=== PATIENT | female | born 1965 | race Caucasian/White ===

== ENCOUNTER 2018-09-05 12:53 | Inpatient (IN) | payer OTHER, SELFPAY ==
[2018-08-16 11:10] VITALS: BP 106/72; PULSE 72; RESP 16; TEMP 36.7; O2SAT 97; BMI 48.6
--- NOTE | 2018-08-16 11:30 | SDCEKG_ITS ---
Test Reason : Blood Pressure : / mmHG Vent. Rate : 070 BPM Atrial Rate : 070 BPM P-R Int : 176 ms QRS Dur : 084 ms QT Int : 398 ms P-R-T Axes : 037 000 022 degrees QTc Int : 429 ms Normal sinus rhythm Low voltage QRS Borderline ECG Confirmed by KAYLEIGH BARBER, SNADRA ([id number]), senior editor EDWIN SOLER ([id number]) on 08/19/2018 2:25:44 PM Referred By: Alfonzo Cooper Confirmed By:SANDRA VICTOR MD
[2018-09-05] VITALS (9 sets, daily range): BP systolic 98–118; BP diastolic 58–80; PULSE 63–84; RESP 14–18; TEMP 36.6–36.9; O2SAT 94–100; BMI 48.6; BMI 48.2
[2018-09-05] MEDS: Acetaminophen 500 MG Tablet 1000 MG PO ×2 (13:28→21:48)
[2018-09-05] MEDS: oxyCODONE HCl Cr 10 MG Tablet 20 MG PO (13:29)
--- NOTE | 2018-09-05 14:55 | KNEE_PTH ---
PATIENT: BOSSMAN COLINDRES LOC: MS3 U#:[id number] AGE/SX: 52/F ROOM: MS308 RE09/05/[address]: Dr. Alfonzo Cooper DO : 1965 BED: 1 DIS: 09/06/2018 SPEC #: [id number] RECD: 09/06/18 14:35 STATUS: BRIANNA REQ #: [id number] ZINA: 09/05/18 14:[address]: Alfonzo Cooper DEPT: SURGICAL PATHOLOGY RECD BY: Shankar Ramos ENTERED: 09/06/18 14:35 SP TYPE: TOTAL KNEE OTHR DR: Dr. Anabell Bonilla MD Tissues: Knee, NOS Procedures: Decalcification bone/plaque Surgery Specimen Level IV HEADER OPERATION: Right total knee replacement, left knee intra-articular injection PRE-OP DIAGNOSIS: Unilateral primary osteoarthritis left knee TISSUE SUBMITTED: Left knee bone and soft tissue MICROSCOPIC DIAGNOSIS Bone and soft tissue of left knee, total knee resection: Severe degenerative joint disease. Mild synovial hyperplasia with associated mild chronic inflammation. AM:brian 09/13/18 MICROSCOPIC DESCRIPTION Slides are reviewed. GROSS DESCRIPTION Received is one container designated bone and soft tissue left knee. The specimen consists of multiple fragments of garcia-yellow bone measuring in aggregate 16 x 10 x 2 cm. Also in the specimen container are multiple fragments of yellow-white soft tissue measuring in aggregate 7 x 7 x 2 cm. A number of bony fragments contain articular surfaces consistent with tibial plateau and femoral condyle and displaying prominent osteophyte formation, eburnation, and bone erosion. Local Announcer sections are submitted in two cassettes as follows: 1 - soft tissue, 2 - bone after decalcification. / AM:brian 09/06/18 TC:5 [facility]: [id number], [id number]
[2018-09-05] MEDS: Betamethasone/Betamethasone 30 MG/5 ML Vial (15:29)
[2018-09-05] MEDS: Cefazolin 2 GM in 0.9% Normal Saline 100 ML IV (15:45)
--- NOTE | 2018-09-05 17:14 | OP.PN_ITS ---
Immediate Post-Op Note Date of Procedure: 09/05/18 Primary Surgeon/Physician: Alfonzo Cooper DO riding double: Eliseo Mcgowan Pre-Operative Diagnosis: OA bilateral knees Post-Operative Diagnosis: same Surgery/Procedure Performed:: Left TKR, right intra-articular injection Description of Surgical Findings:: see op note Estimated Blood Loss: 50cc Specimen's removed: bone Type of Anesthesia:: Spinal ASA Class: ASA3 Severe Disease - Admit VTE Documentation VTE Present on Admission: No VTE Mechan Device Prophylaxis: SCD's, Thigh High DIANA Hose VTE Pharm Prophylaxis ordered?: Yes
--- NOTE | 2018-09-05 17:21 | PCM.OP.BLANK ---
Operative Report Date of Procedure: 09/05/18 Primary Surgeon/Physician: Alfonzo Cooper senior sales operations manager: Eliseo Mcgowan PA-C senior sales operations manager: Pre-Operative Diagnosis: OA bilateral knees Post-Operative Diagnosis: same Surgery/Procedure Performed: Left TKR, Right intra-articular injection Estimated Blood Loss: 50 cc Specimen's Removed: bone Type of Anesthesia: spinal ASA Class: 3 Implants: [[place] Triathlon size 6 PS femur, size 5 tibia, 9 mm polyethylene and 35 mm patella (all components cemented) ] Indications: Patient has severe end-stage osteoarthritis diagnosed via x-rays in the bilateral knees. They have failed all forms of conservative measures including activity modification, injections, anti-inflammatories, use of assistive device. The patient has pain that affects on a daily basis and prevents him from doing things that they enjoyed. They have elected to undergo the above procedure. The risks of the procedure were discussed at length and their questions were answered. Procedure Description: The patient was greeted in the preoperative area. The [left ] knee was then marked with a surgical marker. Patient was then taken to or Suite 2. They were administered a dose of antibiotics as well as tranexamic acid. Once adequate anesthesia was obtained and airway was secured to placed in supine position on the operating room table. A well-padded tourniquet was placed on the affected extremity. Leg was then prepped and draped in the usual sterile fashion from the knee down. Ioban was used on the skin. Surgical timeout was then performed and confirmed with all present. Six-inch Esmarch was used to examine the limb and tourniquet was then inflated to 250 mmHg. A longitudinal incision was then planned and carried out in the anterior aspect of the knee. The dissection was then carried the length of the incision the extensor mechanism was identified. Standard medial parapatellar arthrotomy was then performed revealing severe eburnation of bone and periarticular osteophytes. There is complete loss of cartilage especially in the medial compartment with varus alignment. Anterior fat pad was removed for visualization purposes and the anterior medial aspect of the tibia was skeletonized for exposure to the knee. The knee was then flexed the patella was inverted. Opening reamer was then used in the femur approximately 1 cm anterior to the attachment of the PCL. The intramedullary valgus wand was then placed in the femur set at 5? of valgus. The distal femoral cutting jig was then applied to the femur with anticipated resection of approximately 8 mm. This was then made with a oscillating saw. The sizing guide was then placed referencing off the posterior condyles and also reference off the epicondylar axis. This was measured and the appropriate size 4-in-1 cutting jig was then applied to the distal femur. Anterior posterior cuts were made followed by the anterior and posterior chamfer cuts. These bony pieces and fragments were removed and placed on the back table. Posterior retractor was then utilized and the tibia was subluxed anteriorly. Intramedullary tibial alignment jig was then applied to the tibia referencing off the medial one third of the tibial tubercle the anterior tibial spine the middle aspect of the tibiotalar joint. Also reference off patient's [place] slope. The tibial cutting jig was then pinned with anticipated resection of 2 mm off of the deficient medial tibial condyle. This cut was made with the oscillating saw. Once this was complete a laminar chief juvenile probation officer was utilized in both medial lateral meniscus were removed and a posterior capsular osteophytes were also removed. Posterior capsule release was performed in the posterior capsule as well as the geniculate arteries are treated with the aqua Jing. The tibia was incised and the appropriate sized tibial tray was then pinned. The femoral box cutting jig was then applied to the femur and the box was prepared removing a portion of the intercondylar notch. The femoral trial was then placed and the knee was trialed. Full flexion-extension were easily achieved. The knee seemed to balance quite nicely. Any remaining osteophytes were removed at this time. Once this was complete the patella was everted and the Cipriano patella reaming device was then utilized the patella was then placed in the appropriate jig and reamer was then used to remove approximately 9 mm of the undersurface of the patella. A soft tissue remaining was in the way was removed and patella trial was then placed listed maintain excellent tracking using the no thumbs technique. The tibial tray at this point was punched to accommodate the fins of the final implant. At this point cement was mixed on the back table. The trial components were removed and the knee was copiously irrigated. Did use a cocktail of injection for postoperative pain control. The final components were then cemented in the standard fashion and excess cement was removed with cement removal tools and patellar clamp is placed in the patella. As the cement had cured in full extension tourniquet was deflated and hemostasis was perfect with Bovie cautery as well as the aqua Manus. Needle is once again trialed with different size polyethylenes to ensure the full range of motion was achieved as well as excellent balancing ligamentously was achieved. At this point the knee was copiously irrigated. Final implant was then inserted locking mechanism was engaged and confirmed to be locked. The arthrotomy was then closed with #1 Vicryl aggravate type fashion interrupted. Subcutaneous tissue was closed with 0 Vicryl and surgical stephen were placed in the skin. A occlusive silver impregnated dressing was then applied followed by well-padded sterile dressing secured with an Kermit wrap. Under sterile conditions the right knee was injected with 4 cc 1% lidocaine and 2 cc of Celestone Soluspan. The patient was taken to the PACU in stable condition. No complications known at this time. Postoperatively we will maintain standard total knee postoperative protocol. The use of the physician medical assistant cardiology was integral during this procedure. They assisted with positioning placement of the tourniquet retracting closure and placement of the dressing. The procedure would have been much more difficult without their expertise and assistance
--- NOTE | 2018-09-05 17:26 | OP.PCM_ITS ---
Operative Report Date of Procedure: 09/05/18 Primary Surgeon/Physician: Alfonzo Cooper cutter apprentice hand: Eliseo Mcgowan PA-C cutter apprentice hand: Pre-Operative Diagnosis: OA bilateral knees Post-Operative Diagnosis: same Surgery/Procedure Performed: Left TKR, Right intra-articular injection Estimated Blood Loss: 50 cc Specimen's Removed: bone Type of Anesthesia: spinal ASA Class: 3 Implants: [[place] Triathlon size 6 PS femur, size 5 tibia, 9 mm polyethylene and 35 mm patella (all components cemented) ] Indications: Patient has severe end-stage osteoarthritis diagnosed via x-rays in the bilateral knees. They have failed all forms of conservative measures including activity modification, injections, anti-inflammatories, use of assistive device. The patient has pain that affects on a daily basis and prevents him from doing things that they enjoyed. They have elected to undergo the above procedure. The risks of the procedure were discussed at length and their questions were answered. Procedure Description: The patient was greeted in the preoperative area. The [left ] knee was then marked with a surgical marker. Patient was then taken to or Suite 2. They were administered a dose of antibiotics as well as tranexamic acid. Once adequate anesthesia was obtained and airway was secured to placed in supine position on the operating room table. A well-padded tourniquet was placed on the affected extremity. Leg was then prepped and draped in the usual sterile fashion from the knee down. Ioban was used on the skin. Surgical timeout was then performed and confirmed with all present. Six-inch Esmarch was used to examine the limb and tourniquet was then inflated to 250 mmHg. A longitudinal incision was then planned and carried out in the anterior aspect of the knee. The dissection was then carried the length of the incision the extensor mechanism was identified. Standard medial parapatellar arthrotomy was then performed revealing severe eburnation of bone and periarticular osteophytes. There is complete loss of cartilage especially in the medial compartment with varus alignment. Anterior fat pad was removed for visualization purposes and the anterior medial aspect of the tibia was skeletonized for exposure to the knee. The knee was then flexed the patella was inverted. Opening reamer was then used in the femur approximately 1 cm anterior to the attachment of the PCL. The intramedullary valgus wand was then placed in the femur set at 5? of valgus. The distal femoral cutting jig was then applied to the femur with anticipated resection of approximately 8 mm. This was then made with a oscillating saw. The sizing guide was then placed referencing off the posterior condyles and also reference off the epicondylar axis. This was measured and the appropriate size 4-in-1 cutting jig was then applied to the distal femur. Anterior posterior cuts were made followed by the anterior and posterior chamfer cuts. These bony pieces and fragments were removed and placed on the back table. Posterior retractor was then utilized and the tibia was subluxed anteriorly. Intramedullary tibial alignment jig was then applied to the tibia referencing off the medial one third of the tibial tubercle the anterior tibial spine the middle aspect of the tibiotalar joint. Also reference off patient's [place] slope. The tibial cutting jig was then pinned with anticipated resection of 2 mm off of the deficient medial tibial condyle. This cut was made with the oscillating saw. Once this was complete a laminar filter filler was utilized in both medial lateral meniscus were removed and a posterior capsular osteophytes were also removed. Posterior capsule release was performed in the posterior capsule as well as the geniculate arteries are treated with the aqua Jing. The tibia was incised and the appropriate sized tibial tray was then pinned. The femoral box cutting jig was then applied to the femur and the box was prepared removing a portion of the intercondylar notch. The femoral trial was then placed and the knee was trialed. Full flexion-extension were easily achieved. The knee seemed to balance quite nicely. Any remaining osteophytes were removed at this time. Once this was complete the patella was everted and the Cipriano patella reaming device was then utilized the patella was then placed in the appropriate jig and reamer was then used to remove approximately 9 mm of the undersurface of the patella. A soft tissue remaining was in the way was removed and patella trial was then placed listed maintain excellent tracking using the no thumbs technique. The tibial tray at this point was punched to accommodate the fins of the final implant. At this point cement was mixed on the back table. The trial components were removed and the knee was copiously irrigated. Did use a cocktail of injection for postoperative pain control. The final components were then cemented in the standard fashion and excess cement was removed with cement removal tools and p atellar clamp is placed in the patella. As the cement had cured in full extension tourniquet was deflated and hemostasis was perfect with Bovie cautery as well as the aqua Manus. Needle is once again trialed with different size polyethylenes to ensure the full range of motion was achieved as well as excellent balancing ligamentously was achieved. At this point the knee was copiously irrigated. Final implant was then inserted locking mechanism was engaged and confirmed to be locked. The arthrotomy was then closed with #1 Vicryl aggravate type fashion interrupted. Subcutaneous tissue was closed with 0 Vicryl and surgical stephen were placed in the skin. A occlusive silver impregnated dressing was then applied followed by well-padded sterile dressing secured with an Kermit wrap. Under sterile conditions the right knee was injected with 4 cc 1% lidocaine and 2 cc of Celestone Soluspan. The patient was taken to the PACU in stable condition. No complications known at this time. Postoperatively we will maintain standard total knee postoperative protocol. The use of the physician dental assistant medical assistant was integral during this procedure. They assisted with positioning placement of the tourniquet retracting closure and placement of the dressing. The procedure would have been much more difficult without their expertise and assistance
[2018-09-05] MEDS: Lactated Ringers 1,000 ML 125 ML IV (20:45)
[2018-09-05] MEDS: Aspirin 325 MG Tablet PO (20:46)
[2018-09-05] MEDS: Scopolamine 1mg/72hr Patch 1 PATCH TD (20:46)
[2018-09-05] MEDS: Senna/Docusate Sodium 1 Tablet 2 TABLET PO (21:49)
[2018-09-06] MEDS: oxyCODONE 5 MG Tablet PO ×4 (00:01→12:53)
[2018-09-06 03:05] VITALS: BP 109/69; PULSE 67; RESP 16; TEMP 36.6; O2SAT 93
[2018-09-06] MEDS: Acetaminophen 500 MG Tablet 1000 MG PO ×2 (06:03→14:02)
[2018-09-06 08:00] VITALS: BP 95/63; PULSE 57; RESP 18; TEMP 36.9; O2SAT 98
[2018-09-06] MEDS: Senna/Docusate Sodium 1 Tablet 2 TABLET PO (08:04)
[2018-09-06] MEDS: Aspirin 325 MG Tablet PO (08:04)
[2018-09-06] MEDS: Fluticasone 0.05% 1 SPRAY NASAL.SRY 2 SPRAY NASAL (08:05)
[2018-09-06 08:31] LABS: Hematocrit 38.8 % (37-47); Hemoglobin 12.7 g/dl (12.0-15.0); Mean Corp Hgb Conc 32.7 g/gl (32-36); Mean Corpuscular Volume 91.7 fL (81-99); Mean Platelet Vol. 9.7 fl (6.2-12.0); Platelet Count 222 K/mm3 (150-450); RBC Distribution Width CV 13.1 % (11.6-14.6); RBC Distribution Width SD 43.5 fl (35.1-43.9); Red Blood Count 4.23 M/mm3 (4.2-5.4); Scan Indicated on CBC? Y/N NO; White Blood Count 9.5 K/mm3 (4.4-11.0)
[2018-09-06 08:46] LABS: Anion Gap 9 (5-15); BUN 14 mg/dL (7-18); BUN/Creat Ratio 22.8 RATIO (10-20); Calcium,Total 8.9 mg/dL (8.5-10.1); Chloride 105 mmol/L (98-107); Creatinine, Serum 0.61 mg/dL (0.55-1.02); EST Glomerular Filtration Rate 108 mL/min (>60); Est Glom Filt Rate - Afr Amer 131 mL/min (>60); Estimated Creatinine Clearance 95.97 ml/min; Glucose 160 mg/dL (74-106); Potassium 4.3 mmol/L (3.5-5.1); Sodium Level 140 mmol/L (136-145)
--- NOTE | 2018-09-06 12:06 | PCM.PN.ORT ---
Subjective: Patient ambulating in her room with use of a walker. Pain well managed. Patient denies chest pain, shortness of breath, calf pain, nausea vomiting. Patient has no other complaints ready for discharge home Objective: Dressings clean dry intact. Vital signs labs within normal limits. Negative signs or symptoms of DVT. Patient is in no respiratory distress, and neurovascular is intact. - Physical Exam General: Alert, Oriented x3, Cooperative HEENT: PERRLA Oral: Moist Mucosa Neurological: Cranial nerves II-XII grossly intact Psych/Mental Status: Normal Affect, Alert and oriented to time, place, person, mood and affect Vital Signs Temp Pulse Resp BP Pulse Ox 98.4 F 57 L 18 95/63 98 09/06/18 08:00 09/06/18 08:00 09/06/18 08:00 09/06/18 08:00 09/06/18 08:00 Oxygen Delivery Method Room Air Weight: 131.542 kg Body Mass Index (BMI) 48.2 Intake and Output for Last 24 Hours 09/04/18 09/05/18 09/06/18 23:59 23:59 23:59 Intake Total 1800 / 1800 1386 / 1386 Output Total 1750 / 1750 Balance 1800 / 1800 -364 / -364 Laboratory Tests Past 24 Hrs 09/06/18 09/06/18 08:04 08:04 WBC 9.5 RBC 4.23 Hgb 12.7 Hct 38.8 MCV 91.7 MCH 30.0 MCHC 32.7 RDW 13.1 RDW Differential 43.5 Plt Count 222 MPV 9.7 Sodium 140 Potassium 4.3 Chloride 105 Carbon Dioxide 26.0 Anion Gap 9 BUN 14 Creatinine 0.61 Estim Creat Clear Calc 95.97 Est GFR (MDRD) Af Amer 131 Est GFR (MDRD) Non-Af 108 BUN/Creatinine Ratio 22.8 H Glucose 160 H Calcium 8.9 Medical Necessity - Tobacco Use Smoking Status: Current every day smoker Tobacco Use: Cigars Assessment/Plan Status post left total knee arthroplasty/stable Plan 1. Continue all pain medications as prescribed 2. Continue physical therapy weight-bear as tolerated with walker 3. Aspirin 325 mg 1 p.o. every 12 hours times 30 days for postop DVT prophylaxis 4. Encourage incentive spirometry 5. Follow-up as scheduled Dr. Cooper see pink sheet 6. Discharge home after p.m. therapy 7. Patient will continue with outpatient physical therapy at [facility] [place]
--- NOTE | 2018-09-06 12:14 | DCINST_ITS ---
Discharge Diet: No Restrictions Discharge Activity: May Not Drive, May Shower, Use Walker May shower in (days): 3 May resume sexual activity in: No Restrictions Ice area for (Minutes): 20 - each hour while awake. Weight Bearing Status: Weight bearing as tolerated Elevate: Operative Extremity Additional Activity Instructions:: Wear elastic stockings for 2 weeks after your surgery. Call your doctor if your incision/area has: Continuous Slow Oozing, Sudden Increased Bleeding, Increased Pain/ Swelling, Increased Redness, Foul Smelling Discharge Call your doctor if you observe: Fever of 101 or Higher, Coldness, Increased Pain - in extremity, Numbness or Tingling, Change in Color, Calf discomfort, Uncontrolled pain Change Dressing in (Days):: 0 - and daily as needed. Remove Dressing in (days):: 9 Cleanse incision/area with: Soap & Water Allergies/Adverse Reactions: Allergies ketorolac tromethamine [From Toradol] Adverse Reaction (Verified 08/16/18 11:06) Vomiting Medications to take at Discharge Etodolac [Lodine Xl] 400 mg PO BID 08/16/18 Fluticasone 0.05% [Flonase Nasal [place]] 2 spray NASAL DAILY 08/16/18 Ranitidine [Zantac] 150 mg PO PRN PRN 08/16/18 Acetaminophen [Tylenol] 1,000 mg PO Q8 #90 tab 09/06/18 Aspirin 325 mg PO BIDCM #60 tab 09/06/18 Oxycodone [Oxyir] 5 - 10 mg PO Q4H PRN PRN 7 Days #90 tab 09/06/18 The following prescriptions were given: Oxycodone [Oxyir] 5 - 10 mg PO Q4H PRN PRN 7 Days #90 tab PRN Reason: Mod-Severe Pain (4-10/10) Acetaminophen [Tylenol] 1,000 mg PO Q8 #90 tab Aspirin 325 mg PO BIDCM #60 tab Primary Care Physician: Anabell Bonilla MD [Primary Care Provider] - Test Results: Test results from this visit will be discussed in further detail at your follow- up appointment, if applicable. Please Follow Up With: Alfonzo Cooper DO When: as scheduled (see pink sheet)
--- NOTE | 2018-09-06 13:30 | CASEMGMT ---
KIANA RODRIGUEZ Face to Face with patient for initial transition planning/care coordination assessment. RN MICHAEL introduced self and role at [facility]. Patient sitting in chair, alert and oriented. Patient willing to participate in assessment and is able to answer all questions appropriately. Care providers, pharmacy, and demographics verified. Patient wishes to discharge home and is setup with [facility] for outpatient therapy with providing transportation. Patient has FWW, cane, and raised toilet seat. Patient states she has no further needs or concerns at this time. CM to follow for discharge planning needs that may arise. Disposition Plan: Patient to discharge home with outpatient therapy, family support, and follow-up plans in place. Beth JJ, RN, CM
[2018-09-06 13:52] VITALS: BP 101/72; PULSE 60; RESP 18; TEMP 36.7; O2SAT 94
--- OUTSIDE RECORDS SUMMARY | 2018-11-27 16:00 | XMS RPT_ITS ---
:1965 Author Organization [facility] Care Team Providers Name Role Phone Alfonzo Cooper Admitting Unavailable Alfonzo Cooper Attending Unavailable Alfonzo Cooper Referring Unavailable Anabell Bonilla Primary Care Unavailable Peterson Victor Attending Unavailable Neeraj Linda Referring Unavailable PROBLEMS PROBLEMS DATE TYPE CONDITION / CODE ATTENDING STATUS SOURCE 09/06/2018 Unknown G89.18 - Other acute Alfonzo Cooper Active [place] postprocedural pain [facility]ly [facility] / G89.18(ICD-10) Hospital Repository 08/23/2018 Unknown Z01.810 - Encounter Pteerson Victor Active [place] for preprocedural [facility] Hospital examination / Repository Z01.810(ICD-10) PROCEDURES PROCEDURES No Procedure Records FoundRESULTS RESULTS DISCHARGE INSTRUCTION Observed: 09/06/2018 Status: F Source: [place] 12:14 PM [facility] HOSPITAL REPOSITORY [facility] Medical Records Department [address] [place] [address] Instructions for Home/Discharge Instructions 09/06/18 1212 MR#: [id number] Acct: [id number] Name: BOSSMAN COLINDRES Rep #: [id number] : 1965 52 From: Eliseo Mcgowan PA-C PCP: Anabell Bonilla MD Status: ADM IN Discharge Diet: No Restrictions Discharge Activity: May Not Drive, May Shower, Use Walker May shower in (days): 3 May resume sexual activity in: No Restrictions Ice area for (Minutes): 20 - each hour while awake. Weight Bearing Status: Weight bearing as tolerated Elevate: Operative Extremity Additional Activity Instructions:: Wear elastic stockings for 2 weeks after your surgery. Call your doctor if your incision/area has: Continuous Slow Oozing, Sudden Increased Bleeding, Increased Pain/ Swelling, Increased Redness, Foul Smelling Discharge Call your doctor if you observe: Fever of 101 or Higher, Coldness, Increased Pain - in extremity, Numbness or Tingling, Change in Color, Calf discomfort, Uncontrolled pain Change Dressing in (Days):: 0 - and daily as needed. Remove Dressing in (days):: 9 Cleanse incision/area with: Soap AND Water Allergies/Adverse Reactions: Allergies ketorolac tromethamine [From Toradol] Adverse Reaction (Verified 08/16/18 11:06) Vomiting Medications to take at Discharge Etodolac [Lodine Xl] 400 mg PO BID 08/16/18 Fluticasone 0.05% [Flonase Nasal [place]] 2 spray NASAL DAILY 08/16/18 Ranitidine [Zantac] 150 mg PO PRN PRN 08/16/18 Acetaminophen [Tylenol] 1,000 mg PO Q8 #90 tab 09/06/18 Aspirin 325 mg PO BIDCM #60 tab 09/06/18 Oxycodone [Oxyir] 5 - 10 mg PO Q4H PRN PRN 7 Days #90 tab 09/06/18 The following prescriptions were given: Oxycodone [Oxyir] 5 - 10 mg PO Q4H PRN PRN 7 Days #90 tab PRN Reason: Mod-Severe Pain (4-10/10) Acetaminophen [Tylenol] 1,000 mg PO Q8 #90 tab Aspirin 325 mg PO BIDCM #60 tab Primary Care Physician: Anabell Bonilla MD [Primary Care Provider] - Test Results: Test results from this visit will be discussed in further detail at your follow-up appointment, if applicable. Please Follow Up With: Alfonzo Cooper DO When: as scheduled (see pink sheet) 09/06/18 6095 <Electronically signed by Eliseo Mcgowan PA-C> Date Eliseo Mcgowan PA-C CC: Anabell Bonilla MD Signed CBC-COMPLETE BLOOD CNT Collected: 09/06/2018 Status: F Source: [place] NO DIFF 8:04 AM [facility] [place] TYPE CODE TESTS RESULT OUT OF RANGE REFERENCE UNITS LAB L100.1000 4.4-11.0 K/mm3 Normal WBC 9.5 LAB L100.1200 4.2-5.4 M/mm3 Normal RBC 4.23 LAB L100.1300 12.0-15.0 g/dl Normal HGB 12.7 LAB L100.1400 37-47 % Normal HCT 38.8 LAB L100.1500 81-99 fL Normal MCV 91.7 LAB L100.1600 27.0-32.0 pg Normal MCH 30.0 LAB L100.1700 32-36 g/gl Normal MCHC 32.7 LAB L100.1810 11.6-14.6 % Normal RDW CV 13.1 LAB L100.1820 35.1-43.9 fl Normal RDW SD 43.5 LAB L100.1900 150-450 K/mm3 Normal PLT 222 LAB L100.2000 6.2-12.0 fl Normal MPV 9.7 Performed By: #### L100.0500 #### [facility] [place], [address] BASIC METABOLIC Collected: 09/06/2018 Status: F Source: [place] PROFILE (BMP) 8:04 AM [facility] TYPE CODE TESTS RESULT OUT OF RANGE REFERENCE UNITS LAB L501.0100 74-106 mg/dL High GLU 160 Result Comment: Fasting Glucose result greater than or equal to 126 mg/dL suggests DIABETES MELLITUS per A.D.A. criteria. Please note revised GLUCOSE reference range effective 2017. LAB L501.1000 7-18 mg/dL Normal BUN 14 LAB L501.1100 0.55-1.02 mg/dL Normal CREAT,SERUM 0.61 Result Comment: The validity of the calculated GFR AND GFRAA in patients over 70 years has not been determined. Clinical correlation is essential. LAB L501.1110 >60 mL/min Normal EST GFR 108 Result Comment: Non- GFR Calc LAB L501.1115 >60 mL/min Normal EST GFR - AA 131 Result Comment: GFR Calc LAB L501.1255 ml/min Normal Estimated CRCL 95.97 LAB L501.1300 10-20 RATIO High BUN/CRE 22.8 LAB L501.2200 8.5-10 mg/dL Normal .1 CA 8.9 LAB L501.5300 136-14 mmol/L Normal 5 NA 140 LAB L501.5600 3.5-5. mmol/L Normal 1 K 4.3 LAB L501.5900 98-107 mmol/L Normal CL 105 LAB L501.6100 21.0-3 mmol/L Normal 2.0 CO2 26.0 LAB L501.6200 5-15 Normal GAP 9 Performed By: #### L500.2500 #### [facility] [address] [place], [address] OPERATIVE REPORT Observed: 09/05/2018 Status: F Source: [place] 5:26 PM [facility] Medical Records Department [address] [place] [address] Operative Report 09/05/18 1721 MR#: [id number] Acct: [id number] Name: BOSSAMN COLINDRES Rep #: [id number] : 1965 52 From: Alfnozo Cooper DO PCP: Anabell Bonilla MD Status: ADM IN Location: [place] [address] Operative Report Date of Procedure: 09/05/18 Primary Surgeon/Physician: Alfonzo Cooper curriculum supervisor: Eliseo Mcgowan PA-C curriculum supervisor: Pre-Operative Diagnosis: OA bilateral knees Post-Operative Diagnosis: same Surgery/Procedure Performed: Left TKR, Right intra-articular injection Estimated Blood Loss: 50 cc Specimen's Removed: bone Type of Anesthesia: spinal ASA Class: 3 Implants: [Sullivan Triathlon size 6 PS femur, size 5 tibia, 9 mm polyethylene and 35 mm patella (all components cemented) ] Indications: Patient has severe end-stage osteoarthritis diagnosed via x-rays in the bilateral knees. They have failed all forms of conservative measures including activity modification, injections, anti-inflammatories, use of assistive device. The patient has pain that affects on a daily basis and prevents him from doing things that they enjoyed. They have elected to undergo the above procedure. The risks of the procedure were discussed at length and their questions were answered. Procedure Description: The patient was greeted in the preoperative area. The [left ] knee was then marked with a surgical marker. Patient was then taken to or [address]. They were administered a dose of antibiotics as well as tranexamic acid. Once adequate anesthesia was obtained and airway was secured to placed in supine position on the operating room table. A well-padded tourniquet was placed on the affected extremity. Leg was then prepped and draped in the usual sterile fashion from the knee down. Ioban was used on the skin. Surgical timeout was then performed and confirmed with all present. Six-inch Esmarch was used to examine the limb and tourniquet was then inflated to 250 mmHg. A longitudinal incision was then planned and carried out in the anterior aspect of the knee. The dissection was then carried the length of the incision the extensor mechanism was identified. Standard medial parapatellar arthrotomy was then performed revealing severe eburnation of bone and periarticular osteophytes. There is complete loss of cartilage especially in the medial compartment with varus alignment. Anterior fat pad was removed for visualization purposes and the anterior medial aspect of the tibia was skeletonized for exposure to the knee. The knee was then flexed the patella was inverted. Opening reamer was then used in the femur approximately 1 cm anterior to the attachment of the PCL. The intramedullary valgus wand was then placed in the femur set at 5 of valgus. The distal femoral cutting jig was then applied to the femur with anticipated resection of approximately 8 mm. This was then made with a oscillating saw. The sizing guide was then placed referencing off the posterior condyles and also reference off the epicondylar axis. This was measured and the appropriate size 4-in-1 cutting jig was then applied to the distal femur. Anterior posterior cuts were made followed by the anterior and posterior chamfer cuts. These bony pieces and fragments were removed and placed on the back table. Posterior retractor was then utilized and the tibia was subluxed anteriorly. Intramedullary tibial alignment jig was then applied to the tibia referencing off the medial one third of the tibial tubercle the anterior tibial spine the middle aspect of the tibiotalar joint. Also reference off patient's fond [place] slope. The tibial cutting jig was then pinned with anticipated resection of 2 mm off of the deficient medial tibial condyle. This cut was made with the oscillating saw. Once this was complete a laminar lard mixer was utilized in both medial lateral meniscus were removed and a posterior capsular osteophytes were also removed. Posterior capsule release was performed in the posterior capsule as well as the geniculate arteries are treated with the aqua Jing. The tibia was incised and the appropriate sized tibial tray was then pinned. The femoral box cutting jig was then applied to the femur and the box was prepared removing a portion of the intercondylar notch. The femoral trial was then placed and the knee was trialed. Full flexion-extension were easily achieved. The knee seemed to balance quite nicely. Any remaining osteophytes were removed at this time. Once this was complete the patella was everted and the ChorPpay patella reaming device was then utilized the patella was then placed in the appropriate jig and reamer was then used to remove approximately 9 mm of the undersurface of the patella. A soft tissue remaining was in the way was removed and patella trial was then placed listed maintain excellent tracking using the no thumbs technique. The tibial tray at this point was punched to accommodate the fins of the final implant. At this point cement was mixed on the back table. The trial components were removed and the knee was copiously irrigated. Did use a cocktail of injection for postoperative pain control. The final components were then cemented in the standard fashion and excess cement was removed with cement removal tools and patellar clamp is placed in the patella. As the cement had cured in full extension tourniquet was deflated and hemostasis was perfect with Bovie cautery as well as the aqua Manus. Needle is once again trialed with different size polyethylenes to ensure the full range of motion was achieved as well as excellent balancing ligamentously was achieved. At this point the knee was copiously irrigated. Final implant was then inserted locking mechanism was engaged and confirmed to be locked. The arthrotomy was then closed with #1 Vicryl aggravate type fashion interrupted. Subcutaneous tissue was closed with 0 Vicryl and surgical stephen were placed in the skin. A occlusive silver impregnated dressing was then applied followed by well-padded sterile dressing secured with an Kermit wrap. Under sterile conditions the right knee was injected with 4 cc 1% lidocaine and 2 cc of Celestone Soluspan. The patient was taken to the PACU in stable condition. No complications known at this time. Postoperatively we will maintain standard total knee postoperative protocol. The use of the physician assignment desk assistant was integral during this procedure. They assisted with positioning placement of the tourniquet retracting closure and placement of the dressing. The procedure would have been much more difficult without their expertise and assistance 09/05/18 1726 <Electronically signed by Alfonzo Cooper DO> Date Alfonzo Cooper DO CC: Anabell Bonilla MD; Alfonzo Cooper DO Signed TOTAL KNEE REPLACEMENT Observed: 09/05/2018 Status: F Source: [place] 2:55 PM [facility] [place] Patient: BOSSMAN COLINDRES : 1965 (52/F) Acct Num: [id number] Phys: Alfonzo Cooper DO Unit Num: [id number] Loc: MS3 [id number] Specimen: [id number] Received: 09/06/18 - 1435 Spec Type: TOTAL KNEE TISSUES 1 TISSUES: Knee, NOS GROSS DESCRIPTION Received is one container designated bone and soft tissue left knee. The specimen consists of multiple fragments of garcia-yellow bone measuring in aggregate 16 x 10 x 2 cm. Also in the specimen container are multiple fragments of yellow-white soft tissue measuring in aggregate 7 x 7 x 2 cm. A number of bony fragments contain articular surfaces consistent with tibial plateau and femoral condyle and displaying prominent osteophyte formation, eburnation, and bone erosion. Produce Inspector sections are submitted in two cassettes as follows : 1 - soft tissue, 2 - bone after decalcification. / AM:brian 09/06/18 TC:5 CPT: 51744, 01466 HEADER OPERATION: Right total knee replacement, left knee intra-articular injection PRE-OP DIAGNOSIS: Unilateral primary osteoarthritis left knee TISSUE SUBMITTED: Left knee bone and soft tissue MICROSCOPIC DESCRIPTION Slides are reviewed. MICROSCOPIC DIAGNOSIS Bone and soft tissue of left knee, total knee resection: Severe degenerative joint disease. Mild synovial hyperplasia with associated mild chronic inflammation. AM:brian 09/13/18 Signed Hector Kaiser DO 09/13/18 <signature on file> Performed By: #### PKNEE #### [facility] [address] [place], [address] 12 LEAD ELECTROCARDIOGRAM Observed: 08/19/2018 Status: F Source: [place] 2:26 PM [facility] HOSPITAL REPOSITORY [facility] Cardiovascular Services [address] [place] [address] EKG - SDC 08/16/18 1136 MR#: [id number] Acct: [id number] Name: BOSSMAN COLINDRES Rep #: [id number] : 1965 52 From: Peterson Victor MD Attending Dr: Alfonzo Cooper DO Status: PRE IN Ordering Dr: Neeraj Linda MD Date: 08/16/18 Location: [facility] Sex: F C Admitted: Test Reason : Blood Pressure : / mmHG Vent. Rate : 070 BPM Atrial Rate : 070 BPM P-R Int : 176 ms QRS Dur : 084 ms QT Int : 398 ms P-R-T Axes : 037 000 022 degrees QTc Int : 429 ms Normal sinus rhythm Low voltage QRS Borderline ECG Confirmed by KAYLEIGH BARBER, PETERSON ([id number]), editorial assistant EDWIN SOLER ([id number]) on 08/19/2018 2:25:44 PM Referred By: Alfonzo Cooper Confirmed By:PETERSON VICTOR MD 08/19/18 1425 Date Peterson Victor MD CC: Neeraj Linda MD; Anabell Bonilla MD; Alfonzo Cooper DO Date Dictated: 08/16/181135 Date Transcribed: 08/16/181135 Nozzle And Sleeve Worker: Signed Observed: 08/16/2018 Status: F Source: [place] MRSA/SAID SCREEN 11:40 AM [facility] HOSPITAL REPOSITORY MRSA/SAID SCRN S. AUREUS S. aureus Positive MRSA MRSA Negative Performed By: #### M100.651 #### [facility] [address] [place], [address] ALLERGIES ALLERGIES DATE TYPE / CODE NAME / CODE REACTION SEVERITY SOURCE 08/16/2018 Drug ketorolac Vomiting Unknown [facility] Allergy/416 tromethamine/F00 Hospital 020505(SNOM 0453031(RXNORM) Repository ED CT) ENCOUNTERS ENCOUNTERS ADMIT/DISCHARGE ACCOUNT ADMITTING ENCOUNTER LOCATION SOURCE NUMBER CLASS 09/05/2018/12/28/ [id number] [place], Inpatient [place] 8 2 Alfonzo Encounter [facility] ing:[id number]: Repository AM996Skh: 1 08/16/2018 [id number] Ambulatory BMSBuilding:W [place] 1 [facility] Repository PAYERS PAYERS ENCOUNTER GUARANTOR PAYER SUBSCRIBER SOURCE 09/05/2018 NAREN A Primary BOSSMAN A [place] [id number] SOLER [facility] [place], [place] Number: [id number] Hospital 510[address]Rzb: 330 [id number] Repository [phone] () Date:[id number] [address], [place] [address]SI: 09/05/2018 Secondary NOT GIVENUNK [place] Insurance:SELF PAY [facility] Number: Effective Repository Date:2018-08-26 08/16/2018 NAREN A Primary BOSSMAN A [place] [id number] KARLENE Insurance:CIGNAPolanup SHAMPDOB: [place], [place] Number: [id number] Hospital [address]Syk: 330 [id number] Repository [phone] () Date:[id number], [place] [address]LZ: 08/16/2018 Secondary NOT GIVENUNK [place] Insurance:SELF PAY [facility] Number: Effective Repository Date:2018-08-16
== END 2018-09-06 14:16 | disposition home or self-care (01) | DRG 470 ==
LOC: ACINP 14:07 → MS3 14:25
PROVIDERS: Admitting Provider Orthopaedic Surgery; Family Provider Internal Medicine; PCP Internal Medicine; Referring Provider Orthopaedic Surgery; Visit Provider Orthopaedic Surgery
PROC: 0SRD0J9 Replacement of Left Knee Joint with Synthetic Substitute, Cemented, Open Approach (ICD-10-PCS; CPT 27447; principal; 2018-09-05 14:30)
DX: M17.0 Bilateral primary osteoarthritis of knee (principal); F17.200 Nicotine dependence, unspecified, uncomplicated
CPT/HCPCS: 36415; 80048; 85027; 87077; 87081; 88305; 88311; 93005; 97110; 97161; 97165; 97530; C1776; J7120; J0702; J2405

== ENCOUNTER 2019-07-07 05:23 | Inpatient (IN) | payer OTHER, SELFPAY ==
[2018-09-05 19:23] VITALS: BMI 48.2
[2019-06-20 15:00] VITALS: BP 115/70; PULSE 76; RESP 16; TEMP 36.9; O2SAT 96; BMI 49.9
--- NOTE | 2019-06-20 15:05 | SDCEKG_ITS ---
Test Reason : Blood Pressure : / mmHG Vent. Rate : 073 BPM Atrial Rate : 073 BPM P-R Int : 150 ms QRS Dur : 086 ms QT Int : 378 ms P-R-T Axes : 034 -05 027 degrees QTc Int : 416 ms Normal sinus rhythm Normal ECG Confirmed by TRUMAN BARBER, SHRUTHI ([id number]), purchasing expeditor JOE CHAWLA ([id number]) on 06/25/2019 9:49:39 A M Referred By: Alfonzo Cooper Confirmed By:RIOS LAUGHLIN MD
[2019-06-20 15:24] LABS: Absolute Lymphocyte Count 2.46 X10^3/uL (0.83-4.51); Absolute Neutrophil Count 6.1 X10^3/uL (2.0-7.7); Basophil# 0.08 X10^3/uL; Basophil% 0.9 % (0-1); Eosinophil# 0.09 X10^3/uL; Hematocrit 43.7 % (37-47); Hemoglobin 14.4 g/dL (12.0-15.0); Lymphocyte # 2.46 X10^3/ul (4.0); Lymphocyte % 26.3 % (19-41); Mean Corpuscular Hgb 30.1 pg (27.0-32.0); Mean Corpuscular Volume 91.4 fL (81-99); Mean Platelet Vol. 9.9 fl (6.2-12.0); Monocyte# 0.59 X10^3/uL; Monocyte% 6.3 % (0-10); NRBC Flagged by Analyzer 0 % (0-5); Neutrophil # 6.11 X10^3/uL (2.7-7.7); Neutrophil % 65.3 % (47-70); Platelet Count 273 K/mm3 (150-450); RBC Distribution Width CV 13.2 % (11.6-14.6); RBC Distribution Width SD 44.4 fl (35.1-43.9); Red Blood Count 4.78 M/mm3 (4.2-5.4); White Blood Count 9.4 K/mm3 (4.4-11.0)
[2019-06-20 15:47] LABS: Anion Gap 8 (5-15); BUN 19 mg/dL (7-18); BUN/Creat Ratio 27.3 RATIO (10-20); Calcium,Total 9.3 mg/dL (8.5-10.1); Chloride 109 mmol/L (98-107); EST Glomerular Filtration Rate 93 mL/min (>60); Est Glom Filt Rate - Afr Amer 113 mL/min (>60); Estimated Creatinine Clearance 82.67 ml/min; Glucose 98 mg/dL (74-106); Sodium Level 144 mmol/L (136-145)
[2019-07-07] VITALS (10 sets, daily range): BP systolic 94–140; BP diastolic 53–119; PULSE 59–82; RESP 16–18; TEMP 36.2–36.8; O2SAT 94–100; BMI 49.9; BMI 50.0
[2019-07-07] MEDS: Magnesium Sulfate 4gm/100mL 4 GM/100 ML IV.SOLN. IV (06:16)
[2019-07-07] MEDS: Gabapentin 600 MG Tablet PO (06:17)
[2019-07-07] MEDS: Acetaminophen 500 MG Tablet 1000 MG PO ×3 (06:17→20:49)
[2019-07-07] MEDS: Lactated Ringers 1,000 ML 100 ML IV (06:18)
[2019-07-07 06:30] LABS: Bedside Glucose 94 mg/dL (70-110)
--- NOTE | 2019-07-07 07:15 | KNEE_PTH ---
PATIENT: BOSSMAN COLINDRES LOC: MS3 U#:[id number] AGE/SX: 53/F ROOM: MS314 RE07/07/[address]: Dr. Alfonzo Cooper DO : 1965 BED: 1 DIS: 07/08/2019 SPEC #: [id number] RECD: 07/07/19 11:58 STATUS: BRIANNA REQ #: [id number] ZINA: 07/07/19 07:[address]: Alfonzo Cooper DEPT: SURGICAL PATHOLOGY RECD BY: Erica Winter ENTERED: 07/07/19 12:40 SP TYPE: TOTAL KNEE OTHR DR: Dr. Anabell Bonilla MD Tissues: Knee, NOS Procedures: Decalcification bone/plaque Surgery Specimen Level IV HEADER OPERATION: ERAS, total knee replacement PRE-OP DIAGNOSIS: Unilateral primary osteoarthritis TISSUE SUBMITTED: Bone and soft tissue, right knee MICROSCOPIC DIAGNOSIS Bone and soft tissue of right knee, total knee resection: Severe degenerative joint disease. Mild synovial hyperplasia. AM:brian 07/10/19 MICROSCOPIC DESCRIPTION Slides are reviewed. GROSS DESCRIPTION Received is one container designated bone and soft tissue right knee. The specimen consists of multiple fragments of garcia-yellow bone measuring in aggregate 13 x 11 x 4 cm. Also in the specimen container are multiple fragments of yellow-white soft tissue measuring in aggregate 9 x 7 x 2 cm. A number of bony fragments contain articular surfaces consistent with tibial plateau and femoral condyle and displaying prominent osteophyte formation, eburnation, and bone erosion. Log Loader sections are submitted in two cassettes as follows: 1 - soft tissue, 2 - bone after decalcification. / SJ:brian 07/07/19 TC:5 [facility]: [id number], [id number]
[2019-07-07] MEDS: Lactated Ringers 1,000 ML 125 ML IV ×2 (09:00→15:51)
[2019-07-07] MEDS: Lactated Ringers 1,000 ML 999 ML IV (09:50)
--- NOTE | 2019-07-07 10:19 | PCM.OPRPT ---
Report of Operation Date of Procedure: 07/07/19 Pre-Operative Diagnosis: OA right knee Post-Operative Diagnosis: same Surgery/Procedure Performed:: Right TKR Description of Surgical Findings:: Primary Surgeon/Physician: Alfonzo Cooper office assistant receptionist: Eliseo Mcgowan PA-C office assistant receptionist: Pre-Operative Diagnosis: OA right knee Post-Operative Diagnosis: same Surgery/Procedure Performed: Right TKR Estimated Blood Loss: 25cc Specimen's Removed: bone Type of Anesthesia: spinal ASA Class: 3 Implants: [Mara Triathlon size 6 cemented PS femur, size 5 cemented tibia, 11 mm polyethylene, 35 mm patella,] Indications: Patient has severe end-stage osteoarthritis diagnosed via x-rays in the knee. They have failed all forms of conservative measures including activity modification, injections, anti-inflammatories, use of assistive device. The patient has pain that affects on a daily basis and prevents him from doing things that they enjoyed. They have elected to undergo the above procedure. The risks of the procedure were discussed at length and their questions were answered. Procedure Description: The patient was greeted in the preoperative area. The [right ] knee was then marked with a surgical marker. Patient was then taken to or [address]. They were administered a dose of antibiotics as well as tranexamic acid. Once adequate anesthesia was obtained and airway was secured to placed in supine position on the operating room table. A well-padded tourniquet was placed on the affected extremity. Leg was then prepped and draped in the usual sterile fashion from the knee down. Ioban was used on the skin. Surgical timeout was then performed and confirmed with all present. Six-inch Esmarch was used to examine the limb and tourniquet was then inflated to 250 mmHg. A longitudinal incision was then planned and carried out in the anterior aspect of the knee. The dissection was then carried the length of the incision the extensor mechanism was identified. Standard medial parapatellar arthrotomy was then performed revealing severe eburnation of bone and periarticular osteophytes. There is complete loss of cartilage especially in the medial compartment with varus alignment. Anterior fat pad was removed for visualization purposes and the anterior medial aspect of the tibia was skeletonized for exposure to the knee. The knee was then flexed the patella was inverted. Opening reamer was then used in the femur approximately 1 cm anterior to the attachment of the PCL. The intramedullary valgus wand was then placed in the femur set at 5? of valgus. The distal femoral cutting jig was then applied to the femur with anticipated resection of approximately 8 mm. This was then made with a oscillating saw. The sizing guide was then placed referencing off the posterior condyles and also reference off the epicondylar axis. This was measured and the appropriate size 4-in-1 cutting jig was then applied to the distal femur. Anterior posterior cuts were made followed by the anterior and posterior chamfer cuts. These bony pieces and fragments were removed and placed on the back table. Posterior retractor was then utilized and the tibia was subluxed anteriorly. Extramedullary tibial alignment jig was then applied to the tibia referencing off the medial one third of the tibial tubercle the anterior tibial spine the middle aspect of the tibiotalar joint. Also reference off patient's chitimacha slope. The tibial cutting jig was then pinned with anticipated resection of 2 mm off of the deficient medial tibial condyle. This cut was made with the oscillating saw. Once this was complete a laminar sales performance manager was utilized in both medial lateral meniscus were removed and a posterior capsular osteophytes were also removed. Posterior capsule release was performed in the posterior capsule as well as the geniculate arteries are treated with the aqua Jing. The tibia was incised and the appropriate sized tibial tray was then pinned. The femoral box cutting jig was then applied to the femur and the box was prepared removing a portion of the intercondylar notch. The femoral trial was then placed and the knee was trialed. Full flexion-extension were easily achieved. The knee seemed to balance quite nicely. Any remaining osteophytes were removed at this time. Once this was complete the patella was everted and the Cipriano patella reaming device was then utilized the patella was then placed in the appropriate jig and reamer was then used to remove approximately 9 mm of the undersurface of the patella. A soft tissue remaining was in the way was removed and patella trial was then placed listed maintain excellent tracking using the no thumbs technique. The tibial tray at this point was punched to accommodate the fins of the final implant. At this point cement was mixed on the back table. The trial components were removed and the knee was copiously irrigated. Did use a cocktail of injection for postoperative pain control. The final components were then cemented in the standard fashion and excess cement was removed with cement removal tools and patellar clamp is placed in the patella. As the cement had cured in full extension tourniquet was deflated and hemostasis was perfect with Bovie cautery as well as the aqua Manus. Needle is once again trialed with different size polyethylenes to ensure the full range of motion was achieved as well as excellent balancing ligamentously was achieved. At this point the knee was copiously irrigated. Final implant was then inserted locking mechanism was engaged and confirmed to be locked. The arthrotomy was then closed with #1 Vicryl aggravate type fashion interrupted. Subcutaneous tissue was closed with 0 Vicryl and surgical stephen were placed in the skin. A occlusive silver impregnated dressing was then applied followed by well-padded sterile dressing secured with an Kermit wrap. The patient was taken to the PACU in stable condition. No complications known at this time. Postoperatively we will maintain standard total knee postoperative protocol. The use of the physician department assistant was integral during this procedure. They assisted with positioning placement of the tourniquet retracting closure and placement of the dressing. The procedure would have been much more difficult without their expertise and assistance office assistant receptionist: Eliseo Mcgowan Type of Anesthesia:: Spinal Anesthesiologist: Neeraj Linda Specimen's removed: bone Estimated Blood Loss (mL): 25cc
[2019-07-07] MEDS: oxyCODONE 5 MG Tablet PO ×3 (13:32→21:50)
[2019-07-07] MEDS: Cefazolin 1 GM/50 ML BAG IV ×2 (15:55→23:46)
[2019-07-07] MEDS: Senna/Docusate Sodium 1 Tablet 2 TABLET PO (20:49)
[2019-07-08] VITALS: BP 99/54; PULSE 78; RESP 16; TEMP 36.8; O2SAT 94
[2019-07-08] MEDS: oxyCODONE 5 MG Tablet PO ×5 (02:09→14:03)
[2019-07-08] MEDS: HYDROmorphone 1 MG/ML Syringe 2 MG IV (02:32)
[2019-07-08] MEDS: Ondansetron 4 MG/2 ML Vial IV (02:32)
[2019-07-08 04:23] VITALS: BP 98/50; PULSE 78; RESP 16; TEMP 36.6; O2SAT 94
[2019-07-08] MEDS: Acetaminophen 500 MG Tablet 1000 MG PO ×2 (04:26→14:04)
[2019-07-08 06:47] LABS: Hematocrit 34.3 % (37-47); Hemoglobin 11.2 g/dL (12.0-15.0); Mean Corp Hgb Conc 32.7 g/dL (32-36); Mean Corpuscular Hgb 30.4 pg (27.0-32.0); Mean Corpuscular Volume 93.2 fL (81-99); Mean Platelet Vol. 10.3 fl (6.2-12.0); Platelet Count 192 K/mm3 (150-450); RBC Distribution Width CV 13.5 % (11.6-14.6); Red Blood Count 3.68 M/mm3 (4.2-5.4); White Blood Count 7.9 K/mm3 (4.4-11.0)
[2019-07-08 07:06] LABS: Anion Gap 5 (5-15); BUN 12 mg/dL (7-18); BUN/Creat Ratio 17.8 RATIO (10-20); Chloride 107 mmol/L (98-107); Creatinine, Serum 0.68 mg/dL (0.55-1.02); EST Glomerular Filtration Rate 96 mL/min (>60); Est Glom Filt Rate - Afr Amer 117 mL/min (>60); Estimated Creatinine Clearance 81.67 ml/min; Glucose 119 mg/dL (74-106); Sodium Level 140 mmol/L (136-145)
--- NOTE | 2019-07-08 07:51 | PN.ORTHO_ITS ---
Subjective: Patient sitting at bedside eating breakfast. Patient states pain is been well managed. Patient denies chest pain, shortness breath, calf pain, nausea vomiting. Patient has no other complaints. Patient states she is ready to be discharged home and will continue outpatient physical therapy at [facility]. Objective: Dressing is clean dry intact. Negative signs and symptoms of DVT. Vital signs labs within normal limits. Patient is afebrile, neurovascular is otherwise intact. Patient speaking full sentences has no respiratory distress. - Physical Exam Vitals/I&O's: Vital Signs Temp Pulse Resp BP Pulse Ox 98 F 78 16 98/50 L 94 07/08/19 04:23 07/08/19 04:23 07/08/19 04:23 07/08/19 04:23 07/08/19 04:23 Oxygen Flow Rate (L/min) 6 Oxygen Delivery Method Room Air Weight: 136.2 kg Body Mass Index (BMI) 50.0 Intake and Output for Last 24 Hours 07/06/19 07/07/19 07/08/19 23:59 23:59 23:59 Intake Total 4547.50 / 4547.50 77 / 77 Output Total 1900 / 2500 1000 / 1000 Balance 2647.50 / 2047.50 -923 / -923 General: Alert, Oriented x3, Cooperative HEENT: PERRLA Oral: Moist Mucosa Neurological: Cranial nerves II-XII grossly intact Psych/Mental Status: Normal Affect, Alert and oriented to time, place, person, mood and affect Laboratory Results 07/08/19 06:15: WBC 7.9, RBC 3.68 L, Hgb 11.2 L, Hct 34.3 L, MCV 93.2, MCH 30.4, MCHC 32.7, RDW Std Deviation 46.0 H, RDW Coeff of Marlee 13.5, Plt Count 192, MPV 10.3 07/08/19 06:15: Sodium 140, Potassium 4.0, Chloride 107, Carbon Dioxide 28.0, Anion Gap 5, BUN 12, Creatinine 0.68, Estim Creat Clear Calc 81.67, Est GFR (MDRD) Af Amer 117, Est GFR (MDRD) Non-Af 96, BUN/Creatinine Ratio 17.8, Glucose 119 H, Calcium 8.0 L Current Medications Acetaminophen (Tylenol) 1,000 mg PO Q8 CARLO Last Admin: 07/08/19 04:26 Dose: 1,000 mg Documented by: Aspirin (Aspirin) 325 mg PO BID [facility] Fluticasone Propionate (Flonase Nasal [place]) 2 spray NASAL DAILY [facility] Last Admin: 07/07/19 11:28 Dose: Not Given Documented by: Ondansetron HCl (Zofran) 4 mg IV Q8H PRN PRN PRN Reason: NAUSEA Last Admin: 07/08/19 02:32 Dose: 4 mg Documented by: Oxycodone HCl (Oxyir) 5 mg PO Q3H PRN PRN PRN Reason: Pain Score 4-10/10 Last Admin: 07/08/19 04:56 Dose: 5 mg Documented by: Promethazine HCl (Phenergan) 12.5 mg IM Q6H PRN PRN; Protocol PRN Reason: NAUSEA/VOMITING Senna/Docusate Sodium (Senokot-S, Emily-Colace) 2 tablet PO BID [facility] Last Admin: 07/07/19 20:49 Dose: 2 tablet Documented by: Sodium Chloride () 10 - 40 ml IV UD PRN PRN Reason: SALINE FLUSH Medical Necessity - Tobacco Use Smoking Status: Never smoker Tobacco Use: Non-smoker Assessment/Plan Status post right total knee arthroplasty Plan 1. Continue all pain medications as prescribed 2. Begin physical therapy today weight-bear as tolerated with walker. 3. Aspirin 325 mg 1 p.o. every 12 hours x30 days for postop DVT prophylaxis 4. Encourage incentive spirometry 5. Patient will continue with outpatient physical therapy at [facility] 6. Follow-up as scheduled with Dr. Magana. 7. Discharge home today
--- NOTE | 2019-07-08 07:57 | DCINST_ITS ---
Discharge Diet: No Restrictions Discharge Activity: May Not Drive, May Shower, Use Walker May shower in (days): 2 Ice area for (Minutes): 20 - each hour while awake. Weight Bearing Status: Weight bearing as tolerated Elevate: Operative Extremity Additional Activity Instructions:: Wear elastic stockings for 2 weeks after your surgery. Call your doctor if your incision/area has: Continuous Slow Oozing, Sudden Increased Bleeding, Increased Pain/ Swelling, Increased Redness, Foul Smelling Discharge Call your doctor if you observe: Fever of 101 or Higher, Coldness, Increased Pain - in extremity, Numbness or Tingling, Change in Color, Calf discomfort, Uncontrolled pain Change Dressing in (Days):: 0 - and daily as needed. Remove Dressing in (days):: 8 Cleanse incision/area with: Soap & Water Allergies/Adverse Reactions: Allergies ketorolac tromethamine [From Toradol] Adverse Reaction (Verified 07/07/19 05:51) Vomiting Medications to take at Discharge Fluticasone 0.05% [Flonase Nasal [place]] 2 spray NASAL DAILY 08/16/18 Acetaminophen [Tylenol] 1,000 mg PO Q8 tab 07/08/19 Aspirin 325 mg PO BID tab 07/08/19 Ondansetron [Zofran] 4 mg IV Q8H PRN PRN vial 07/08/19 Oxycodone [Oxyir] 5 - 10 mg PO Q4H PRN PRN 7 Days #85 tab 07/08/19 Senna/Docusate Sodium [Senokot-S] 2 tab PO BID tab 07/08/19 The following prescriptions were given: Oxycodone [Oxyir] 5 - 10 mg PO Q4H PRN PRN 7 Days #85 tab PRN Reason: Pain Score 4-10/10 Prescription Printed Primary Care Physician: Anabell Bonilla MD [Primary Care Provider] - Test Results: Test results from this visit will be discussed in further detail at your follow- up appointment, if applicable. Please Follow Up With: Eliseo Mcgowan PA-C When: see pink sheet
[2019-07-08] MEDS: Senna/Docusate Sodium 1 Tablet 2 TABLET PO (08:07)
[2019-07-08] MEDS: Aspirin 325 MG Tablet PO (08:07)
[2019-07-08 08:10] VITALS: BP 108/63; PULSE 71; RESP 16; TEMP 37.4; O2SAT 96
--- NOTE | 2019-07-08 09:50 | CASEMGMT ---
RN CM Assessment Introduced role of RN CM to patient.? Patient is alert, oriented and able?to participate in RN CM Assessment. ?Care providers, pharmacy, and demographics verified. Presentation: Scheduled Right TKR Admit Dx: Intractable Right knee pain Re-Admit: No Barriers/Issues: Patient sitting up in chair with polar ice machine on. Patient states in pain and appears tearful. States has discussed with nurse and surgeon, has a good support system to help at home. PCP: Anabell Bonilla Specialists: Elisabeth Cooper Preferred Pharmacy: [facility] if open prior to DC Insurance: [employer] Rx Benefit: Yes? ?LNOK: Avinash LW/HPOA: None, declines offered information or services on this admission. Aware can return as an outpatient to complete with dept. Living Arrangements:? Lives with her in a SS home, 2 steps to enter. ADL?s: Independent with ambulation and ADLs Transportation: Both patient and drive DME: Walker, cane, polar ice machine HHC: None SNF: None Goal: Home with Outpatient PT- already set up with [facility], had a walker. Denies any other additional needs, issues, or concerns at this time. Aware CM remains available for any emerging needs. DC PLAN: Home with outpatient PT. ARTIS Mckeon
[2019-07-08 14:15] VITALS: BP 137/76; PULSE 51; RESP 16; TEMP 36.7; O2SAT 93
== END 2019-07-08 14:28 | disposition home or self-care (01) | DRG 470 ==
LOC: ACINP 05:23 → MS3 10:49
PROVIDERS: Admitting Provider Orthopaedic Surgery; Family Provider Internal Medicine; PCP Internal Medicine; Referring Provider Orthopaedic Surgery; Visit Provider Orthopaedic Surgery
PROC: 0SRC0J9 Replacement of Right Knee Joint with Synthetic Substitute, Cemented, Open Approach (ICD-10-PCS; CPT 27447; principal; 2019-07-07 06:50)
DX: M17.11 Unilateral primary osteoarthritis, right knee (principal); Z96.652 Presence of left artificial knee joint
CPT/HCPCS: 36415; 80048; 82962; 85025; 85027; 87081; 88305; 88311; 93005; 97110; 97162; 97166; 97530; C1776; J7120; J2405

== ENCOUNTER 2020-07-23 07:27 | Day surgery (SDC) | payer OTHER, SELFPAY ==
[2020-06-25 13:13] VITALS: BMI 47.5
[2020-07-23 08:01] VITALS: BP 113/75; PULSE 79; RESP 18; TEMP 36.6; O2SAT 100; BMI 47.0
--- NOTE | 2020-07-23 08:06 | HP.PCM_ITS ---
Problem List (1) Family history of malignant neoplasm of colon in mother Status: Acute (2) Family history of malignant neoplasm of colon in father Status: Acute History and Physical Date of Admission: 07/23/20 Intake Visit Reasons: C-Scope Chief Complaint: rectal pain, BRBPR, family history of colon cancer Trimmer Sawyer Required: No Is patient in pain?: No Allergies ketorolac tromethamine [From Toradol] Adverse Reaction (Verified 06/25/20 13:14) Vomiting Medications Fluticasone 0.05% [Flonase Nasal [place]] 2 spray NASAL DAILY 08/16/18 [History Confirmed 06/25/20] ibuprofen 400 mg tablet 400 mg PO Q8H PRN 06/25/20 [History Confirmed 06/25/20] Is last menstrual period known: No Post menopausal: Yes Patient : No PFSH Medical History (Updated 06/25/20 @ 13:[address] Kishor Howard MD) Family history of malignant neoplasm of colon in mother (Acute) Family history of malignant neoplasm of colon in father (Acute) Rectal bleeding (Acute) Internal hemorrhoids (Acute) Osteoarthritis (Acute) Surgical History (Updated 06/25/20 @ 13:12 by Meghna Hines) History of cholecystectomy (Acute) History of colonoscopy (Acute ~2014) History of left knee replacement (Acute) History of right knee joint replacement (Acute) Family History (Updated 06/25/20 @ 13:13 by Meghna Hines) Mother Colon cancer Heart disease Father Colon cancer Gastric ulcer Social History (Updated 06/25/20 @ 13:[address] Kishor Howard MD) Smoking Status: Never smoker HPI HPI HPI: 54-year-old female. She is referred by Sarah Elkins CNP and I have written compromise surgical consult recommendations will return to her. For the past 3 months or so she has had hard stools and intermittent rectal bleeding. Her most recent colonoscopy was performed by Dr. Pierce Brown April 07, 2015. Scattered diverticula of the sigmoid colon noted. Some hemorrhoids noted. It is of note that the patient's mother had colon cancer approximately age 68 and her father had colon cancer approximately age 56. He did succumb to his disease. During younger years the patient smoked cigarettes for approximately 7 years but none currently. She has not had any abdominal pain or weight loss. 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 She has direct patient contact. I have assisted her in the past with a laparoscopic cholecystectomy she has not had a long-term consequence. 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 She claims that 3 days ago she was COVID-19 tested and was negative. HPI HPI HPI: BOSSMAN COLINDRES, is a 54 F who presents to the office today for ROS General General: No weight change, appetite, fatigue, colon cancer, breast cancer or weakness HEENT HEENT: No difficulty swallowing, eye injury, eye surgery, swollen glands or hoarseness Endo Endocrine: No thyroid disease, diabetes mellitus, thyroid cancer, Hair loss, heat intolerance or cold intolerance Musc Musculoskeletal: Yes arthritis; no back problems, rheumatoid arthritis, gout or joint pain Cardio Cardiovascular: No murmur, pacemaker, heart disease, atrial fibrillation, high blood pressure, heart attack, heart stent, palpitations, shortness of breat with exertion or chest pain Psych Psychiatric: No depression, anxiety or hearing voices Resp Respiratory: No shortness of breath, No sleep apnea, No cough, No COPD, No asthma, No emphysema, No wheezing Gastro Gastrointestinal: No abdominal pain, No nausea or vomiting, No diarrhea, No constipation, Yes blood in stool, No acid reflux, Yes hemorrhoids, No ulcers, No gallbladder problem, No black,tarry stools Binu Hematologic: No blood thinners, No blood disorders, No bleeding, No anemia, No blood clots Neuro Neurologic: No weakness Exam Const General: cooperative, healthy appearing Nutritional Appearance: obese morbidly obese [facility] Head: normal to inspection Resp Effort & Inspection: normal respiratory effort Auscultation: clear to auscultation bilaterally Cardio Rate: regular rate Rhythm: regular rhythm Heart Sounds: no murmurs GI Palpation: soft Auscultation: normal bowel sounds Neuro General: alert Extrem General: no calf tenderness Psych Affect: normal affect Assessment & Plan Problems 1. Rectal bleeding K62.5 2. Family history of malignant neoplasm of colon in father Z80.0 3. Family history of malignant neoplasm of colon in mother Z80.0 Plan 54-year-old female with intermittent rectal bleeding and a strong family history of colon cancer in both her mother and father. I propose for a colonoscopy with possible biopsy or polypectomy as indicated. She is aware of the technique, benefit, risk, alternatives. We will want to use monitored anesthesia care. BMI is 47.5. 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 I have asked her to do her very best once she has a scheduling and Covid testing to remain as distant as possible. She states that it is not possible for her to completely quarantine for 1 week prior to the procedure. She is aware that the [facility] utilizes a send out test and does not have the 48- hour turnaround test available for endoscopy patients as what is used at the [facility]. She has had an opportunity to ask and have questions answered. We will schedule procedure at her discretion. Copy: Sarah Elkins CNP and Dr. Anabell Howard M.D., F.A.C.S. I have re-examined the patient. There are no clinical changes since date of exam. Procedure Criteria Procedure Type: Elective COVID Risk Discussion: The surgeon/proceduralist and patient have discussed in detail the risk of exposure to and/or potential harm posed by the COVID-19 virus with having a surgery/procedure at this time versus the risk of delaying the surgery/procedure. It is not possible to know either the risk of delaying the surgery or procedure or chance of getting an infection with perfect accuracy, bu t a joint decision was made between the patient and the surgeon/proceduralist to proceed at this time with the scheduled surgery/procedure as indicated on the consent form.
[2020-07-23] MEDS: Lactated Ringers 1,000 ML 100 ML IV (08:11)
[2020-07-23 09:11] VITALS: BP 113/71; BP 113/75; PULSE 76; RESP 16; TEMP 36.3; O2SAT 99
--- NOTE | 2020-07-23 09:13 | OP.CCLET_ITS ---
07/23/2020 Mayur Dhaliwal Re : Colonoscopy procedure for Ermelinda Gaspar Dear Severo This procedure was performed on Thursday, July 23, 2020. My impressions and recommendations are as follows: Impressions : - Non-thrombosed internal hemorrhoids and internal hemorrhoids that prolapse with straining, but spontaneously regress to the resting position (Grade II) found on digital rectal exam. - The entire examined colon is normal. - No specimens collected. Recommendations : - Discharge patient to home. - Resume previous diet. - Continue present medications. - Repeat colonoscopy in 5 years for surveillance. Hemorrhoids potential source of intermittent rectal bleeding/conservative management recommended. My findings are described in the full procedure note, which is enclosed. If I can be of further assistance, please feel free to contact me at Doctor phone number(s): Work: . Sincerely, Kishor Howard MD 07/23/2020 9:13:14 AM This report has been signed electronically.
--- NOTE | 2020-07-23 09:13 | OP.COLON_ITS ---
Patient Name: Ermelinda Gaspar Procedure Date: 07/23/2020 8:48 AM Date of : 1965 Age: 54 Procedure: Colonoscopy Indications: Family history of colon cancer in a first-degree relative Providers: Kishor Howard MD Referring MD: Anabell Bonilla Medicines: See the Anesthesia note for documentation of the administered medications Patient Profile: Last Colonoscopy: March 2005. Complications: No immediate complications. Procedure: Pre-Anesthesia Assessment: - Prior to the procedure, a History and Physical was performed, and patient medications and allergies were reviewed. The patient's tolerance of previous anesthesia was also reviewed. The risks and benefits of the procedure and the sedation options and risks were discussed with the patient. All questions were answered, and informed consent was obtained. Prior Anticoagulants: The patient has taken no previous anticoagulant or antiplatelet agents. ASA Grade Assessment: II - A patient with mild systemic disease. After reviewing the risks and benefits, the patient was deemed in satisfactory condition to undergo the procedure. After I obtained informed consent, the scope was passed under direct vision. Throughout the procedure, the patient's blood pressure, pulse, and oxygen saturations were monitored continuously. The adult colonoscope was introduced through the anus and advanced to the cecum, identified by appendiceal orifice and ileocecal valve. The colonoscopy was performed without difficulty. The patient tolerated the procedure well. The quality of the bowel preparation was good. The ileocecal valve and the appendiceal orifice were photographed. Scope In: 8:54:49 AM Scope Withdrawal Time 0 hours 6 minutes 29 seconds Scope Out: 9:07:47 AM Total Procedure Duration Time 0 hours 12 minutes 58 seconds Findings: The digital rectal exam findings include non-thrombosed internal hemorrhoids and internal hemorrhoids that prolapse with straining, but spontaneously regress to the resting position (Grade II). The colon (entire examined portion) appeared normal. Impression: - Non-thrombosed internal hemorrhoids and internal hemorrhoids that prolapse with straining, but spontaneously regress to the resting position (Grade II) found on digital rectal exam. - The entire examined colon is normal. - No specimens collected. Recommendation: - Discharge patient to home. - Resume previous diet. - Continue present medications. - Repeat colonoscopy in 5 years for surveillance. Hemorrhoids potential source of intermittent rectal bleeding/conservative management recommended. Procedure Code(s): --- Professional --- 66892, Colonoscopy, flexible; diagnostic, including collection of specimen(s) by brushing or washing, when performed (separate procedure) Diagnosis Code(s): --- Professional --- K64.1, Second degree hemorrhoids Z80.0, Family history of malignant neoplasm of digestive organs CPT copyright 2017 [employer]. All rights reserved. The codes documented in this report are preliminary and upon gas turbine mechanic review may be revised to meet current compliance requirements. Kishor Howard MD 07/23/2020 9:13:14 AM This report has been signed electronically. Number of Addenda: 0 Note Initiated On: 07/23/2020 8:48 AM
[2020-07-23 09:15] VITALS: BP 113/75; BP 114/73; PULSE 76; RESP 16; O2SAT 100
[2020-07-23 09:20] VITALS: BP 112/68; BP 113/75; PULSE 77; RESP 16; O2SAT 99
[2020-07-23 09:21] VITALS: BP 113/75; BP 115/64; PULSE 76; TEMP 36.3; O2SAT 99
[2020-07-23 09:55] VITALS: BP 113/75
== END 2020-07-23 09:56 | disposition home or self-care (01) ==
LOC: EN 07:29 → AC 07:29
PROVIDERS: PCP Internal Medicine; Referring Provider Internal Medicine; Visit Provider Surgery
PROC: 0DJD8ZZ Inspection of Lower Intestinal Tract, Via Natural or Artificial Opening Endoscopic (ICD-10-PCS; CPT 45378; principal; 2020-07-23 08:55)
DX: K62.5 Hemorrhage of anus and rectum (principal); K62.89 Other specified diseases of anus and rectum; K64.1 Second degree hemorrhoids; K64.8 Other hemorrhoids; M19.90 Unspecified osteoarthritis, unspecified site; E66.01 Morbid (severe) obesity due to excess calories; Z68.42 Body mass index [BMI] 45.0-49.9, adult; Z78.0 Asymptomatic menopausal state; Z96.653 Presence of artificial knee joint, bilateral; Z80.0 Family history of malignant neoplasm of digestive organs
CPT/HCPCS: 45378; J7120

== ENCOUNTER → 2020-08-09 | Outpatient (CLI) | payer OTHER, SELFPAY ==
[2020-08-09 16:12] VITALS: BMI 47.0
== END | disposition home or self-care (01) ==
PROVIDERS: PCP Internal Medicine; Referring Provider Physician Assistant; Visit Provider Physician Assistant
DX: J06.9 Acute upper respiratory infection, unspecified (principal)
CPT/HCPCS: 87635; U0003

== ENCOUNTER 2024-05-21 08:33 | Emergency (ER) | payer OTHER, SELFPAY ==
[2024-05-21 08:34] VITALS: BP 162/101; PULSE 73; RESP 16; TEMP 36.2; O2SAT 98; BMI 54.6
[2024-05-21 08:51] VITALS: O2SAT 97
--- NOTE | 2024-05-21 08:59 | EDS_ITS ---
HPI History of Present Illness Chief Complaint: Shortness of Breath Detail of Chief Complaint: Dyspnea and dyspnea on exertion the past 2 nights and pleuritic pain right Informant: patient Onset/Context/Timing Onset: Days (2 days ago) Context: sudden Timing: Intermittent and Waxes and wanes Quality: Positive for Dyspnea on exertion and Orthopnea (Patient states she had to sleep upright because of discomfort yesterday.); Negative for PND or Wheezing Current Severity: Mild Maximum Severity: Moderate Worsened by: Exertion Relieved by: Nothing Associated Symptoms Negative for cough, rhinorrhea, post nasal drip, ear pain, fever, sore throat, subjective, chills, sweats, clear sputum, white sputum, yellow sputum or green sputum Chest Pain: Positive for Intermittent and Pleuritic Narrative Narrative: Patient is a 58-year-old woman. She has no significant past medical history. She presents with superior right pleuritic discomfort that started 1 to 2 days ago. She is complaining of dyspnea with dyspnea on exertion yesterday. She was diagnosed with COVID approximately 2 weeks ago. Presently she denies fever, chills night sweats. She denies rhinorrhea, congestion postnasal drainage sore throat. She denies cough. There is no history of direct or indirect trauma. She has not noted a rash. Pain is not positional. She denies prior history of VTE. She denies leg pain, swelling discoloration. Patient has no other complaints or symptoms. PE Risk Factors: Positive for - (Recent COVID infection); Negative for Cancer, OCP + Smoking + > 35, Prior DVT or PE, Recent immobilization, Recent surgery or Recent travel Prior similar symptoms: No Recent Illness/Hospitalization: No PFSH PFS Medical History Asthma Hay fever Shoulder pain Family history of malignant neoplasm of colon in mother Family history of malignant neoplasm of colon in father Rectal bleeding Internal hemorrhoids Osteoarthritis Home Medications ?Medication ?Instructions ?Recorded ?Last Taken ?Type ibuprofen 400 mg tablet 400 mg PO Q8H PRN Pain 1-10 Or 06/25/20 Unknown History Fever doxycycline monohydrate 100 mg 100 mg PO BID #10 CAPSULES 05/21/24 Unknown Rx capsule Allergy/AdvReac Type Severity Reaction Status Date / Time ketorolac tromethamine (From AdvReac Vomiting Verified 05/21/24 08:35 Toradol) Family History Mother Colon cancer Heart disease Father Colon cancer Gastric ulcer Surgical History History of colonoscopy (~2014) History of cholecystectomy History of left knee replacement History of right knee joint replacement Social History Smoking Status: Never smoker alcohol intake: current alcohol intake frequency: a few times a week Alcohol type: wine ROS ROS ED Constitutional Constitutional ED: Denies chills, fever(s), sweats or weight loss Eyes Eyes: Denies blurry vision or change in vision ENT ENT ED: Denies rhinorrhea or sore throat Cardiovascular Cardiovascular: Reports chest pain and orthopnea; Denies palpitations, paroxysmal nocturnal dyspnea or racing heartbeat Respiratory/Chest Respiratory/Chest: Reports orthopnea; Denies cough, dyspnea, dyspnea on exertion or paroxysmal nocturnal dyspnea Gastrointestinal Gastrointestinal: Denies abdominal pain, nausea or vomiting Genitourinary Genitourinary ED: Denies dysuria, hematuria or urinary frequency Musculoskeletal Musculoskeletal: Denies arthralgias, back pain, myalgias or neck pain Integumentary Denies rash Hematologic/Lymphatic Hematologic/Lymphatic: Denies easy bleeding or easy bruising EXAM Physical Exam Const Vital Signs: 05/21/24 08:34 05/21/24 08:51 05/21/24 09:38 Temperature 97.2 F L Temperature Source Temporal Pulse Rate 73 Respiratory Rate 16 Respiratory Effort Short of Breath Respiratory Depth Normal Respiratory Pattern Normal Blood Pressure 162/101 H 126/85 H Blood Pressure Mean 121 98 Pulse Ox 98 98 Oxygen Delivery Method Room Air Room Air Positive well nourished and well developed General Appearance ED: well developed and NAD; Negative for pallor HEENT Reports moist mucous membranes HEENT Narrative: Head is normocephalic. Ears normal. Nares patent. atraumatic Eyes PERRL and EOMs intact bilaterally General Eye ED: Negative for pale conjunctiva or scleral icterus Neck no lymphadenopathy, supple, no meningeal signs and no JVD Resp normal respiratory effort and clear to auscultation bilaterally Resp Narrative: There is no reproducible pain to palpation. There is no rash noted. Cardio regular rate, regular rhythm, S1 normal heart sound, S2 normal heart sound and no murmurs GI non-tender, non-distended and no masses Extremity Extremity Narrative: There is no asymmetry, swelling, discoloration, leg vein distention, palpable cords or tenderness along the distribution of the deep venous system. General Extremety ED: Negative for edema General Extremity: Negative for edema Neuro oriented x3 and CN's II-XII intact bilaterally Sensorium / Orientation: alert Psych mental status grossly normal Skin no wounds and skin turgor normal General Skin Exam: Negative for jaundice or pallor Lesions: no lesions Rashes: no rashes MDM MDM MDM Narrative Medical decision making narrative: Differential diagnosis would include pleurisy, pneumonia, pulmonary embolus. Will obtain chest x-ray, CBC, BMP. Assess renal function if a CTA is needed. D-dimer. Chest x-ray was ordered. Vital signs remarkable for elevated blood pressure 162/101. She is not tachypneic or tachycardic. Furthermore, she is not hypoxic. Chest x-ray reveals irregularity of the right hemidiaphragm. With pain to the right apex/right side of the neck this may be referred pain due to diaphragmatic irritation from pneumonia. She does have a cough. Will treat with a short course of doxycycline especially since she was diagnosed with COVID 2 weeks ago. This may represent an atypical pneumonia or strep or staphylococcal infection. Lab Data Attestation: I reviewed the patient's lab results. Lab results narrative: CBC is normal. D-dimer is normal once corrected for age. BUN to creatinine ratio is elevated. Glucose elevated 107 with normal CO2 and anion gap. Labs: Laboratory Results - last 24 hr 05/21/24 09:00 WBC 6.9 RBC 4.82 Hgb 14.1 Hct 44.0 MCV 91.3 MCH 29.3 MCHC 32.0 RDW Std Deviation 46.3 H RDW Coeff of Marlee 13.7 Plt Count 235 MPV 9.6 Immature Gran % (Auto) 0.400 Neut % (Auto) 57.9 Lymph % (Auto) 33.0 Isabela % (Auto) 5.8 Eos % (Auto) 2.0 Baso % (Auto) 0.9 Absolute Neuts (auto) 4.0 Absolute Lymphs (auto) 2.26 Nucleated RBC % 0 D-Dimer Quant (PE/DVT) 0.50 H Sodium 141 Potassium 3.9 Chloride 104 Carbon Dioxide 27.0 Anion Gap 10 BUN 13 Creatinine 0.57 Estim Creat Clear Calc 157.18 Est GFR (MDRD) Af Amer 139 Est GFR (MDRD) Non-Af 115 BUN/Creatinine Ratio 22.7 H Glucose 107 H Calcium 9.5 Radiography Chest X-Ray - ED: 2 View and Read by ED Physician (There is slight haziness of the right diaphragmatic border. There is evidence of atelectasis with elevation of the right hemidiaphragm. Comparison is 2008. Cardiac silhouette and size normal. Hilum is unremarkable. [place] structures are normal.) Diagnostic Testing: Clinical Impression(s) from Imaging Studies Chest X-Ray 05/21/24 09:08 IMPRESSION: Elevation of the right hemidiaphragm with right basilar atelectasis or early/developing pneumonia. Follow-up chest imaging to resolution recommended. Electronically Signed: Eliseo Phillips MD at 9:21 EDT Reading Location ID and State: [address] [place] [address] , Service support , Discharge Plan Triage Chief Complaint: Shortness of Breath ED Provider: Jorge Garrett Dx/Rx/DC Orders Clinical Impression: Infiltrate of lower lobe of right lung present on imaging study, Chest pain, pleuritic, Elevated blood-pressure reading, without diagnosis of hypertension Instructions: ED Hypertension, To Be Confirmed, ED Pneumonia (Adult) Prescriptions: New doxycycline monohydrate 100 mg capsule 100 mg PO BID Qty: 10 0RF No Action ibuprofen 400 mg tablet 400 mg PO Q8H PRN (Reason: Pain 1-10 Or Fever) Primary Care Provider: Leatha Helm NP Referrals: Anabell Bonilla MD [Med Staff - Hazardous Material Technician] - 3-5 Days if not improving Activity Restrictions/Additional Instructions: You may take either 4 ibuprofen tablets every 8 hours or 2 Aleve tablets every 12 hours next 3 to 5 days for your pain. Print Language: Guatemalan Disposition Disposition: Home, Self Care
--- NOTE | 2024-05-21 09:08 | RAD_ITS ---
STUDY: X-RAY CHEST REASON FOR EXAM: Female, 58 years old. Pleuritic right chest pain. TECHNIQUE: Frontal and lateral views of the chest. COMPARISON: December 07, 2008 FINDINGS: Elevation of the right hemidiaphragm with right basilar atelectasis or early/developing pneumonia. There is no demonstrated pleural abnormality. Normal size heart. Normal mediastinum and tatiana. Normal visualized pulmonary arteries. Stable aortic tortuosity. Normal visualized thoracic spine. Normal visualized ribs, clavicles, and shoulders. No abnormality of the visualized soft tissue structures of the upper abdomen. RAD/Chest PA and Lateral IMPRESSION: Elevation of the right hemidiaphragm with right basilar atelectasis or early/developing pneumonia. Follow-up chest imaging to resolution recommended. Electronically Signed: Eliseo Phillips MD at 9:21 EDT ,
[2024-05-21 09:11] LABS: Absolute Lymphocyte Count 2.26 X10^3/uL (0.83-4.51); Basophil# 0.06 X10^3/uL; Basophil% 0.9 % (0-1); Eosinophil# 0.14 X10^3/uL; Hemoglobin 14.1 g/dL (12.0-15.0); Lymphocyte # 2.26 X10^3/ul (0.83-4.51); Mean Corpuscular Hgb 29.3 pg (27.0-32.0); Mean Corpuscular Volume 91.3 fL (81-99); Mean Platelet Vol. 9.6 fl (6.2-12.0); Monocyte% 5.8 % (0-10); NRBC Flagged by Analyzer 0 % (0-5); Neutrophil # 3.96 X10^3/uL (2.7-7.7); Neutrophil % 57.9 % (47-70); Platelet Count 235 K/mm3 (150-450); RBC Distribution Width CV 13.7 % (11.6-14.6); RBC Distribution Width SD 46.3 fl (35.1-43.9); Red Blood Count 4.82 M/mm3 (4.2-5.4); White Blood Count 6.9 K/mm3 (4.4-11.0)
[2024-05-21 09:28] LABS: Anion Gap 10 (5-15); BUN 13 mg/dL (7-18); BUN/Creat Ratio 22.7 RATIO (10-20); Calcium,Total 9.5 mg/dL (8.5-10.1); Chloride 104 mmol/L (98-107); Creatinine, Serum 0.57 mg/dL (0.55-1.02); EST Glomerular Filtration Rate 115 mL/min (>60); Est Glom Filt Rate - Afr Amer 139 mL/min (>60); Estimated Creatinine Clearance 157.18 ml/min; Glucose 107 mg/dL (74-106); Potassium 3.9 mmol/L (3.5-5.1); Sodium Level 141 mmol/L (136-145)
[2024-05-21 09:38] VITALS: BP 126/85; O2SAT 98
[2024-05-21 10:05] VITALS: BP 132/95; PULSE 68; RESP 18; TEMP 36.2; O2SAT 97
== END 2024-05-21 10:06 | disposition home or self-care (01) ==
PROVIDERS: Emergency Provider Emergency Medicine; PCP Nurse Practitioner Family; Visit Provider Emergency Medicine
DX: R91.8 Other nonspecific abnormal finding of lung field (principal); R07.81 Pleurodynia; R03.0 Elevated blood-pressure reading, without diagnosis of hypertension; R05.9 Cough, unspecified; R06.09 Other forms of dyspnea; Z88.6 Allergy status to analgesic agent; Z87.09 Personal history of other diseases of the respiratory system; Z86.16 Personal history of COVID-19
CPT/HCPCS: 71046; 80048; 85025; 85379; 99284; A4216

== ENCOUNTER 2024-08-12 14:50 | Outpatient (RCR) | payer OTHER, SELFPAY | END 2024-09-09 23:59 | LOC: NS 14:50 | PROVIDERS: PCP Nurse Practitioner Family; Referring Provider Physician Assistant; Visit Provider Physician Assistant | DX: Z71.3 Dietary counseling and surveillance (principal); E66.01 Morbid (severe) obesity due to excess calories; M16.11 Unilateral primary osteoarthritis, right hip; Z68.43 Body mass index [BMI] 50.0-59.9, adult | CPT/HCPCS: 97802 ==

== ENCOUNTER 2024-09-17 15:51 | Outpatient (RCR) | payer OTHER, SELFPAY | END 2024-10-10 23:59 | LOC: NS 15:51 | PROVIDERS: PCP Nurse Practitioner Family; Referring Provider Physician Assistant; Visit Provider Physician Assistant | DX: Z71.3 Dietary counseling and surveillance (principal); M16.11 Unilateral primary osteoarthritis, right hip; E66.01 Morbid (severe) obesity due to excess calories; Z68.43 Body mass index [BMI] 50.0-59.9, adult | CPT/HCPCS: 97803 ==

== ENCOUNTER 2024-10-21 15:48 | Outpatient (RCR) | payer OTHER, SELFPAY | END 2024-11-07 23:59 | LOC: NS 15:48 | PROVIDERS: PCP Nurse Practitioner Family; Referring Provider Physician Assistant; Visit Provider Physician Assistant | DX: Z71.3 Dietary counseling and surveillance (principal); E66.01 Morbid (severe) obesity due to excess calories | CPT/HCPCS: 97803 ==